=== PATIENT | male | born 1960 | race Caucasian/White ===

== ENCOUNTER 2018-02-23 05:52 | Day surgery (SDC) | payer BC ==
[2018-02-23] VITALS (12 sets, daily range): BP systolic 103–138; BP diastolic 60–89
[~2018-02-23] VITALS: Ht 185.4 cm; Wt 79.4 kg
[2018-02-23] MEDS ORDERED: oxyCONTIN 20mg tab ORAL ONE (06:00)
[2018-02-23] MEDS ORDERED: ceFAZolin 1gm IVPB IVPB ONE ×2 (06:00)
[2018-02-23] MEDS ORDERED: celeBREX 200mg Cap **SURGERY PATIENTS ONLY ORAL ONE (06:00)
[2018-02-23] MEDS ORDERED: ATORVASTATIN CA10 MG ORAL (06:31)
[2018-02-23] MEDS ORDERED: Ketamine 500mg Inj ONE (06:48)
[2018-02-23] MEDS ORDERED: Sodium Chloride 10ml vial INJ ONE (06:49)
[2018-02-23] MEDS ORDERED: Lidocaine 1% MPF 10mg/ml 5ml ONE (06:49)
[2018-02-23] MEDS ORDERED: Ropivacaine 5mg/ml Vial 30ml INJ ONE (06:53)
[2018-02-23] MEDS ORDERED: EPINEPHrine 1mg/1ml Amp ONE (06:53)
--- NOTE | 2018-02-23 06:59 | Pre-Procedure Note/Attestation ---
Pre-Procedure Note/Attestation Complete Prior to Procedure Planned Procedure: right Procedure Narrative: rt shoulder scope, sad, mini ashley rtc repair Indications for Procedure Pre-Operative Diagnosis: rt shoulder rtc tear Attestation I attest that I discussed the nature of the procedure; its benefits; risks and complications; and alternatives (and the risks and benefits of such alternatives ), prior to the procedure, with the patient (or the patient's legal consumer sales representative). I attest that, if there was a reasonable possibility of needing a blood transfusion, the patient (or the patient's legal consumer sales representative) was given the [facility] [place] [facility] standardized written summary, pursuant to the Jason Odin Blood Safety Act ([place] Health and Safety Code # 1645, as amended). I attest that I re-evaluated the patient just prior to the surgery and that there has been no change in the patient's H&P, except as documented below: none Foster Ochoa MD Feb 23, 2018 06:59
[2018-02-23] MEDS ORDERED: LR 1000ml 1,000 ML IVLG SCH (07:01)
[2018-02-23] MEDS ORDERED: Dexamethasone 4mg/ml vial ONE (07:04)
--- NOTE | 2018-02-23 07:04 | Anethesia Preoperative Eval ---
Anesthesia Pre-op PMH/ROS General Date of Evaluation: Feb 23, 2018 Time of Evaluation: 07:11 Anesthesiologist: Victor Hugo ASA Score: ASA 3 Mallampati Score Class I : Soft palate, uvula, fauces, pillars visible Class II: Soft palate, uvula, fauces visible Class III: Soft palate, base of uvula visible Class IV: Only hard plate visible Mallampati Classification: Class I Surgeon: Gabriela Diagnosis: R Shoulder Pain Surgical Procedure: R Shoulder Arthroscopy Anesthesia History: none Family History: no anesthesia problems Allergies: Coded Allergies: No Known Allergies (Unverified , 02/22/18) Medications: see eMAR Patient NPO?: Yes Past Medical History Cardiovascular: Reports: HTN, other - HL Hematology/Immune: Reports: other - Skin CA PSxH Narrative: T&A, R Knee Arthroscopy Anesthesia Pre-op Phys. Exam Physician Exam Last Vital Signs Date Time Temp Pulse Resp B/P (MAP) Pulse Ox O2 Delivery O2 Flow Rate FiO2 02/23/18 06:40 98.1 57 20 128/77 98 Room Air Constitutional: NAD Neurologic: CN 2-12 intact Cardiovascular: RRR Respiratory: CTA Gastrointestinal: S/NT/ND Airway Exam Mallampati Score: Class I MO: full ROM: full Teeth: intact Anesthesia Pre-op A/P Risk Assessment & Plan Assessment: ASA 3 Plan: GA, SED, Supraclavicular Block Status Change Before Surgery: No Pre-Antibiotics Dru Gram Ancef IV Time Given: 07:36 Roland Gay MD Feb 23, 2018 07:04
[2018-02-23] MEDS ORDERED: Meperidine 50mg/ml Inj(FOR RIGORS ONLY) IVP PRN (07:15)
[2018-02-23] MEDS ORDERED: Metoclopramide 10mg/2ml Inj IVP PRN (07:15)
[2018-02-23] MEDS ORDERED: Hydromorphone 0.5mg/0.5ml inj IVP PRN (07:15)
[2018-02-23] MEDS ORDERED: Atropine Sulfate 0.4mg/ml inj IVP PRN (07:15)
[2018-02-23] MEDS ORDERED: fentaNYL 100 mcg/2 mL IV PRN (07:15)
[2018-02-23] MEDS ORDERED: Norco 5mg/325mg tab ORAL PRN ×2 (07:15→14:01)
[2018-02-23] MEDS ORDERED: LORazepam Inj 2mg/ml 1ml IV PRN (07:15)
[2018-02-23] MEDS ORDERED: Ketorolac 30mg Inj IV PRN ×2 (07:15)
[2018-02-23] MEDS ORDERED: oxyCODONE HCL/Acetaminophen 5/325mg ORAL PRN (07:15)
[2018-02-23] MEDS ORDERED: Midazolam 2mg/2ml Inj IVP PRN (07:15)
[2018-02-23] MEDS ORDERED: DiphenhydrAMINE 50mg/ml Inj IVP PRN (07:15)
[2018-02-23] MEDS ORDERED: HYDROcodone/Acetamin 7.5/325 tab ORAL PRN (07:15)
[2018-02-23] MEDS ORDERED: Bupivacaine w/Epi 0.5% 30ml Vial INJ ONE (07:25)
--- NOTE | 2018-02-23 08:11 | Immediate Post-Op Evaluation ---
Immediate Post-Op Evalulation Immediate Post-Op Evalulation Procedure: R Shoulder Arthroscopy, RCR Date of Evaluation: Feb 23, 2018 Time of Evaluation: 09:19 IV Fluids: 800 LR Blood Products: 0 Estimated Blood Loss: 10 Urinary Output: 0 Blood Pressure Systolic: 107 Blood Pressure Diastolic: 59 Pulse Rate: 66 Respiratory Rate: 16 O2 Sat by Pulse Oximetry: 100 Temperature (Fahrenheit): 97.1 Pain Score (1-10): 1 Nausea: No Vomiting: No Complications 0 Patient Status: awake, reacts, patent, none Hydration Status: adequate Dru Gram Ancef IV Given Within 1 Hr of Incision: Yes Time Given: 07:36 Roland Gay MD Feb 23, 2018 08:11
--- NOTE | 2018-02-23 08:12 | 48 Hour Post Anesthesia Eval ---
Post Anesthesia Evaluation Procedure: R Shoulder Arthroscopy Date of Evaluation: Feb 23, 2018 Time of Evaluation: 11:21 Blood Pressure Systolic: 124 0: 78 Pulse Rate: 71 Respiratory Rate: 18 Temperature (Fahrenheit): 98.2 O2 Sat by Pulse Oximetry: 99 Airway: patent Nausea: No Vomiting: No Pain Intensity: 1 Hydration Status: adequate Cardiopulmonary Status: Stable Mental Status/LOC: patient returned to baseline Follow-up Care/Observations: 0 Post-Anesthesia Complications: 0 Follow-up care needed: ready to discharge Roland Gay MD Feb 23, 2018 08:12
[2018-02-23] MEDS ORDERED: NS Irrig 4000ml IRRIG ONE ×2 (08:35→08:55)
--- NOTE | 2018-02-23 08:57 | Brief Operative Note ---
Immediate Post Operative Note Operative Note Chief Complaint: rt shoulder pain Pre-op Diagnosis: rt shoulder rtc tear Procedure: rt shoulder scope, sad, mini ashley, rtc repair Post-op Diagnosis: same as pre-op Findings: consistent w/pre-op dx studies Surgeon: md brannon Counter Stitcher: radha romero Anesthesiologist: md tamara Anesthesia: general Specimen: none Complications: none Condition: stable Fluids: ns Estimated Blood Loss: minimal Drains: none Implant(s) used?: Yes - biomet Marjorie Romero Feb 23, 2018 08:57
[2018-02-23] MEDS ORDERED: HYDROmorphone 1mg/ml Carpuject SUBQ PRN (14:01)
[2018-02-23] MEDS ORDERED: D5 1/2NS 1,000 ML IV SCH (14:01)
[2018-02-23] MEDS ORDERED: Tylenol #3 tab (300mg/30mg) ORAL PRN (14:01)
--- NOTE | 2018-02-23 19:15 | Operative Note - Dictated ---
DATE OF OPERATION: 02/23/2018 PREOPERATIVE DIAGNOSIS: Right shoulder rotator cuff tear. POSTOPERATIVE DIAGNOSES: 1. Right shoulder large anterior as well as anterior superior labral tearing without detachment from glenoid. 2. Right shoulder fraying of the biceps tendon involving 10% of biceps tendon. 3. Right shoulder full-thickness 1-1/2 centimeter rotator cuff tear with crescent-shaped without retraction. 4. Right shoulder large acromial bone spur taken into the rotator cuff. 5. Right shoulder inferior bone spur underneath the clavicle impinging on the supraspinatus tendon. PROCEDURE: 1. Right shoulder arthroscopy and extensive intra-articular shaving. 2. Right shoulder anterior as well as superior labral debridement repair to a stable zone without anchor fixation. 3. Right shoulder subacromial bursoscopy, bursectomy, and subacromial decompression. 4. Right shoulder mini-Rodríguez procedure (resection of inferior 30% of distal end of clavicle for coplaning). 5. Right shoulder arthroscopic rotator cuff repair using 2 Biomet 2.9 mm JuggerKnot anchors. SURGEON: Foster Ochoa M.D. RVDA MASTER CERTIFIED RV TECHNICIAN: Marjorie Fontaine PA-C. Bus Girl was present during the actual operative portion of the case and was important and essential part of the operation. During the operation, the clinical trial assistant held and operated the arthroscopic camera for visualization, assisted by manipulating the arm to help with visualization, and helped with essential parts of the repair process as necessary such as operating surgical instruments under surgeon supervision, suture management, and wound closures. ANESTHESIOLOGIST: Roland Gay M.D. ANESTHESIA: LMA anesthesia. ESTIMATED BLOOD LOSS: Minimal COMPLICATIONS: None SURGICAL INDICATION: Patient is a 57-year-old male who sustained the above injury to his shoulder. The patient was treated non-operative initially, but this did not alleviate the patients symptoms. Therefore, after discussing all non-surgical and surgical options, and discussing all foreseeable risk and benefits of surgery, the patient opted for surgical treatment as described above. PATIENT POSITIONING: Patient was brought to the operating room table and was placed on the operating room table. All pressure points were well padded. General anesthesia was induced and patient was then placed in the lateral decubitus position. All pressure points were well padded again and an axillary roll was placed. Patient shoulder was then prepped and draped in the usual sterile fashion. Time out was performed and the appropriate preoperative antibiotic was given by the anesthesiologist. EXAMINATION OF SHOULDER UNDER ANESTHESIA: The shoulder was examined under anesthesia with all muscles well relaxed. The shoulder was forward flexed, abducted and was placed through full range of external and internal rotation. The anterior, posterior, and inferior stability of the shoulder was checked. The exam revealed no evidence of adhesive capsulitis and no evidence of instability. PORTAL PLACEMENT: The posterior portal was established 2cm inferior and 1cm medial to the edge of the posterior acromion. 1 cm skin incision was made using an eleven blade and using the blunt obturator, the cannula was gently placed through the capsule. The midglenoid portal was established just lateral to the coracoid process under direct visualization. Direction of the cannula was first established using a spinal needle, and subsequently, the cannula was placed through the capsule with a blunt obturator. The anterior superior cannula was established under direct visualization off the anterior lateral edge of the acromion and just anterior to the biceps tendon through the rotator interval. The directional of cannula was first established using a spinal needle, and subsequently, the cannula was placed through the capsule with a blunt obturator. DIAGNOSTIC ARTHROSCOPY: The biceps tendon was probed and pulled through the joint for visualization. Fraying of the biceps tendon involving 10% of the body of the biceps tendon. The part that slid within the intertubercular groove did not appear to have significant fraying. The biceps anchor was palpated with a probe and was visualized. Superior labral tearing all the way to the anterior labrum and anterior inferior labrum. There was no detachment from glenoid, however, there was large flap tears of the labrum anteriorly as well as superiorly. The posterior labrum and axillary recess was visualized. This was normal and there was no evidence of loose cartilage or fragments in this area. The glenoid articular surface was visualized and it appeared normal. The articular surface of the rotator cuff was visualized and probed next. Full-thickness rotator cuff tear measuring 1.5 cm. This was crescent-shaped. This involved supraspinatus. The Humeral head articular surface was then visualized. There was no evidence of articular cartilage damage. Next the anterior labrum, middle glenohumeral ligament, subscapularis tendon, and the anterior inferior glenohumeral ligament were evaluated. Anterior inferior labrum had some tearing without detachment from glenoid. Middle glenohumeral ligament and the subscapularis were intact. At this point, the scope was moved to the mid-glenoid portal and the posterior structures including the posterior labrum, posterior capsule and posterior cuff were visualized. These structures were completely normal. The subscapularis recess was devoid of any loose bodies and the anterior capsule was well attached to the humeral neck. The middle and anterior inferior glenohumeral ligament was visualized. These structures were completely normal. OPERATIVE DEBRIDEMENTS AND REPAIR: Care was given to all partial thickness tears and frayed structures in the shoulder joint. The frayed rotator cuff and labrum was debrided using a shaver initially through the anterior portal and subsequently through the posterior portal to complete the debridement. This allowed for smooth debridement of all affected structures and all loose fragments were removed. DIAGNOSTIC BURSOSCOPY AND SUBACROMIAL DECOMPRESSION: The subacromial bursa was entered from the posterior portal. The anterior portal was established under the CA ligament using a switching stick. Subacromial arthroscopy was initiated. There was extensive bursitis and thickened and inflamed bursa tissue present. The CA ligament appeared to be scuffed and frayed. The shaver was placed through the anterior cannula and debridement of the hypertrophic bursa tissue was accomplished. Once visualization was adequate, a lateral portal was established using a blunt trochar in the mid portion of the acromion bone in the anterior-posterior direction and approximately 2 cm lateral to the lateral edge of the acromion. Using combination of shaver and electrocautery the CA ligament was released from the undersurface of the acromion and a complete bursectomy was accomplished. At this point, a subacromial decompression was performed using a bao initially taking off 5-8 mm of the anterolateral edge of the acromion from the lateral portal and viewing from the posterior portal. Then the lateral border of the undersurface of the acromion was decompressed to the same dept as the anterolateral edge. A posterior trough was then created in the acromion in line with the posterior edge of the clavicle. At this point, the scope was placed in the lateral portal and the subacromial decompression was performed from the posterior portal decompressing the undersurface of the acromion to dept of 5-8 mm. The decompression was performed anterior to the previously marked trough all the way medially to the level of the AC joint. At all times, care was given not to take off too much bone in order to avoid risk of fracture of the acromion. An excellent subacromial decompression was performed in this fashion. At this point, the bursal side of the rotator cuff was examined. All the bursa over the rotator cuff was removed and the rotator cuff was examined with a probe. The arm was placed into external rotation, neutral, and then internal rotation and a 1.5 cm non-retracted crescent-shaped rotator cuff tear. The scope was then placed in the posterior portal and the subacromial decompression was rechecked to assure there is no area of bone spur that would be still impinging onto the rotator cuff. EVALUATION OF DISTAL CLAVICLE AND DISTAL CLAVICLE RESECTION: Care was given to the distal end of the clavicle. Using electrocautery and edvin, the distal end of the bursa and soft tissue around the distal end of the clavicle was debrided and cleaned. Care was given not to inflict excessive trauma to the ligaments of the AC joint. The distal end of the clavicle appeared to have an inferior osteophyte extending down well bellow the level of the acromion at the level of the AC joint. This appeared to be impinging onto the supraspinatus muscle belly and the musculotendinous junction of the rotator cuff. A mini-Rodríguez procedure was performed by using a bao to resect the inferior 30% of the distal end of the clavicle. This decompression allowed space for the inferior structures to slide without impingement. This co-plained the inferior edge of the distal clavicle with the inferior edge of the acromion. (alternative) The entire AC joint appeared to be arthritic as well. A full-Rodríguez procedure was then performed resecting the distal 1 cm of the clavicle using a bao. The resection was initially performed from the posterior portal and view from the lateral portal, and it subsequently completed viewing from the posterior portal and resecting through the anterior portal with a bao to assure adequate and even resection. Care was given not to damage the superior acromioclavicular ligaments or the coracoacromial ligaments. The extend of the resection was measured by measuring the distance between two spinal needles that were placed perpendicularly through the skin at the edge of the acromion and distal clavicle. The scope was placed in the lateral portal and the rotator cuff was visualized. The rotator cuff revealed a 1.5 cm crescent-shaped rotator cuff tear. The rotator cuff foot print adjacent to the articular cartilage of the humeral head was identified. This area was debrided initially using edvin and subsequently using bao to provide adequate bleeding bony surface to accept the rotator cuff tendon. Attention was given to repair the rotator cuff with as little tension as possible. (side to side repair) Side to side #2 Ethibond sutures were placed in the rotator cuff tendon using arthroscopic suture passing instrumentation. The side to side sutures reduce the tear size and change the configuration to a tear that was amendable for tendon to bone repair using suture anchors. At this point, an arthroscopic punch was used to create holes for suture anchor placement at the medial edge of the foot print through separate stab wound incisions and an arthroscopic tap was used to prepare the holes. A 2 Biomet 2.9 mm JuggerKnot anchors double loaded with two #2 non-absorbable strong sutures were placed in previously prepared holes. Using standard arthroscopic suture passing instruments, the sutures were passed through the edge of rotator cuff with minimal trauma to the cuff tissue. Care was given to obtain large enough bites of the rotator cuff for the sutures to hold well. Once the sutures were passed through the cuff, the repair was secured onto the rotator cuff foot print using SMC sliding knots followed by 3 alternating-post half hitches. This allowed tension free repair of the rotator cuff with excellent stability and water tight closure. The cuff repair security was assured by palpating the repair with a probe. CONDITION AT DISCHARGE FROM OPERATING ROOM: The skin was re-approximated and sterile dressing and sling were applied. All lap counts and instrument counts were correct. Patient tolerated the procedure well without complications and was taken to the recovery room in stable conditions. Foster Ochoa M.D. DR: SMITH JOB#: [id number] CC:
== END 2018-02-23 12:15 | disposition home or self-care (01) ==
LOC: SUR 05:52
DX: M75.101 Unspecified rotator cuff tear or rupture of right shoulder, not specified as traumatic (principal); S43.431A Superior glenoid labrum lesion of right shoulder, initial encounter; S46.111A Strain of muscle, fascia and tendon of long head of biceps, right arm, initial encounter; M75.81 Other shoulder lesions, right shoulder; E29.1 Testicular hypofunction; E78.2 Mixed hyperlipidemia; I10 Essential (primary) hypertension; G47.00 Insomnia, unspecified; B00.9 Herpesviral infection, unspecified; Z85.828 Personal history of other malignant neoplasm of skin
CPT/HCPCS: 29807; 29824; 29826; 29827; J0171; J0690; J1100; J2250; J2795; J3490; 94003; 94150; C1713